=== PATIENT | male | born 1985 | race Caucasian/White ===

== ENCOUNTER → 2016-10-14 | Outpatient (CLI) | payer BC, OTHER ==
--- NOTE | 2016-10-14 09:50 | Diagnostic Imaging Report ---
Examination: DEXA scan. Indication: Screening for bone density. Technique: Bone mineral density estimated based on dual energy radiography over the lumbar spine and femoral necks, was performed. Findings: The lumbar spine T-score is 0.5. T score over the left femoral neck is 0.9 and on the right side is 0.7. IMPRESSION: Normal bone mineral density. Dictated by: Dictated on workstation # [id number]
== END ==
LOC: RAD 08:43
PROVIDERS: ATTEND Family Medicine
DX: Z13.820 Encounter for screening for osteoporosis (principal)
CPT/HCPCS: 77080

== ENCOUNTER → 2017-05-11 | Outpatient (CLI) | payer BC ==
--- NOTE | 2017-05-11 09:40 | Diagnostic Imaging Report ---
INDICATION: Left testicular elevation. FINDINGS: Right and left testes measure 5.3 x 2.4 x 3.6 cm and 3.9 x 1.7 x 2.7 cm, respectively. The smaller left testicle is also mildly dysmorphic, however blood flow is unremarkable to both testes and no discrete testicular mass is identified. There is no significant hydrocele or extratesticular lesion identified. There is no significant varicocele or evidence of bowel herniation into the scrotum. IMPRESSION: Mildly dysmorphic smaller left testicle without mass or evidence of torsion. Scrotum is otherwise unremarkable. Dictated by: Dictated on workstation # [id number]
== END ==
LOC: RAD 08:49
PROVIDERS: ATTEND Urology
DX: N50.89 Other specified disorders of the male genital organs (principal)
CPT/HCPCS: 76870

== ENCOUNTER → 2018-05-12 | Outpatient (CLI) | payer BC ==
--- NOTE | 2018-05-12 15:26 | Diagnostic Imaging Report ---
INDICATION: Undescended left testicle as a baby. FINDINGS: Right testicle measures 5.1 x 2.3 x 4.0 cm. Left testicle is smaller measuring 3.8 x 1.7 x 2.6 cm. Both testes are fairly homogeneous in echotexture. No testicular mass is seen. There is blood flow bilaterally. No hydrocele or varicocele is seen. Epididymides are unremarkable. IMPRESSION: Asymmetry in testicular size, left smaller. This is similar to the examination from one year earlier. No testicular mass or vascular compromise is identified. Dictated by: Dictated on workstation # [id number]
== END ==
LOC: RAD 14:22
PROVIDERS: ATTEND Family Medicine
DX: N50.0 Atrophy of testis (principal); Q53.10 Unspecified undescended testicle, unilateral; Z98.890 Other specified postprocedural states
CPT/HCPCS: 76870

== ENCOUNTER → 2019-05-15 | Outpatient (CLI) | payer BC ==
--- NOTE | 2019-05-15 10:40 | Diagnostic Imaging Report ---
CLINICAL INDICATION: Patient injured self two months ago working out. Patient has pain to lower left-sided back and down leg. EXAMS: 1: X-ray of the lumbar spine, three views. 2: X-ray of the sacroiliac joints, three views. COMPARISON: None. FINDINGS: Lumbar spine: There is no acute lumbar spine fracture. There is appearance of subtle grade 1 retrolisthesis of L5 on S1. There also appears to be mild loss of intervertebral disc height at the L5-S1 level. Remainder of lumbar spine is unremarkable. There is no other significant degenerative changes seen. Sacroiliac joints: The sacroiliac joints show no significant abnormality. There is no significant degenerative changes or erosions noted. Visualized course of both hips show small degenerative spurs involving the proximal femoral head/neck junction regions bilaterally. IMPRESSION: 1: There appears to be subtle grade 1 retrolisthesis of L5 on S1 and mild loss of intervertebral disc height at the L5-S1 level. If there is concern for disc herniation, MRI of the lumbar spine would better evaluate. Lateral flexion and extension views of lumbar spine would also help better evaluate the concern for L5-S1 retrolisthesis. 2: Sacroiliac joints show no significant abnormality. 3: Mild degenerative spurring involving both hips. Dictated by: Dictated on workstation # [id number]
== END ==
LOC: RAD 09:09
PROVIDERS: ATTEND Family Medicine
DX: M43.17 Spondylolisthesis, lumbosacral region (principal); M16.11 Unilateral primary osteoarthritis, right hip; M16.12 Unilateral primary osteoarthritis, left hip
CPT/HCPCS: 72100; 72202

== ENCOUNTER → 2019-05-24 | Outpatient (CLI) | payer BC ==
--- NOTE | 2019-05-24 09:37 | Diagnostic Imaging Report ---
CLINICAL INDICATION: Patient has low back pain x2 months now. EXAM: MRI of the lumbar spine performed without IV contrast. Sagittal T2, sagittal T1, sagittal T2 fat-sat, and axial T2. COMPARISON: X-ray of the lumbar spine dated 05/15/2019. FINDINGS: Lumbar spine has normal alignment with no fracture or dislocation. The lumbar vertebra have normal T1 and T2 signal. The visualized portions of the distal spinal cord, conus medullaris, and cauda equina have normal anatomic appearance. The conus medullaris tip is seen at the upper L1 vertebral body level. No paraspinal soft tissue abnormality is seen. L1-L2: Unremarkable. L2-L3: Unremarkable. L3-L4: Unremarkable. L4-L5: There are low T2 degenerative disc signal changes. There is no significant disc bulge. There is no significant central spinal canal or neural foramen narrowing. L5-S1: There is a mild diffuse disc bulge with superimposed small left paracentral disc protrusion/herniation and mild loss of intervertebral disc height. There are slight low T2 degenerative disc signal changes. There is concern for encroachment upon the non-exited left L1 nerve root. There is no significant central canal narrowing. There is moderate bilateral neuroforamen narrowing. IMPRESSION: 1: There is mild L5-S1 diffuse disc bulge with superimposed small left paracentral disc herniation. There is encroachment upon the non-exited left L1 nerve root and moderate bilateral neuroforamen narrowing. There is no significant central canal narrowing. Dictated by: Dictated on workstation # [id number]
== END ==
LOC: RAD 08:24
PROVIDERS: ATTEND Family Medicine
DX: M51.16 Intervertebral disc disorders with radiculopathy, lumbar region (principal); M48.061 Spinal stenosis, lumbar region without neurogenic claudication
CPT/HCPCS: 72148

== ENCOUNTER → 2019-12-27 | Outpatient (CLI) | payer BC | LOC: LABNPT 06:49 | PROVIDERS: ATTEND Family Medicine | DX: Z20.828 Contact with and (suspected) exposure to other viral communicable diseases (principal) ==

== ENCOUNTER → 2020-11-17 | Outpatient (CLI) | payer BC ==
--- NOTE | 2020-11-17 13:42 | Diagnostic Imaging Report ---
PROCEDURE: US Scrotum. TECHNIQUE: Multiple real-time grayscale images were obtained over the scrotum in various projections bilaterally. INDICATION: Undescended left testicle, repaired, follow-up. COMPARISON: 05/12/2018 FINDINGS: The right testicle measures 5.5 x 2.1 x 3.5 cm. Echogenicity is normal and vascularity is normal. No masses are present. The epididymis appears normal. There is no hydrocele. The left testicle measures 4.0 x 1.3 x 3.0 cm. Echogenicity appears normal and vascularity is normal. Contour is slightly asymmetric, but this appears stable compared to the prior studies. No masses are seen. There is no hydrocele. The epididymis is unremarkable. IMPRESSION: 1. Mildly smaller and asymmetric left testicle, appear stable since the prior exam, with no masses or other abnormality seen. Dictated by: Dictated on workstation # [id number]
== END ==
LOC: RAD 10:44
PROVIDERS: ATTEND Nurse Practitioner Family
DX: Q53.10 Unspecified undescended testicle, unilateral (principal); N50.812 Left testicular pain
CPT/HCPCS: 76870

== ENCOUNTER → 2022-10-06 | Outpatient (CLI) | payer BC ==
--- NOTE | 2022-10-06 13:28 | Diagnostic Imaging Report ---
PROCEDURE: US Scrotum. TECHNIQUE: Multiple real-time grayscale images were obtained over the scrotum in various projections bilaterally. INDICATION: History of undescended left testicle, repaired as an . Right testicle measures 5.3 x 2.6 x 3.3 cm and left testicle measures 4.3 x 2.2 x 2.3 cm. No discrete testicular mass is identified. There does appear to be some mild generalized heterogeneity to the left testicle. There is blood flow to both testes. Epididymides are unremarkable. No hydrocele or varicocele is detected. IMPRESSION: Slight asymmetry in testicular size and mild left testicular heterogeneity, perhaps owing to prior surgery. No discrete testicular mass or vascular compromise is detected. Dictated by: Dictated on workstation # [id number]
== END ==
LOC: RAD 12:30
PROVIDERS: ATTEND Physician Assistant
DX: N50.9 Disorder of male genital organs, unspecified (principal); Z87.438 Personal history of other diseases of male genital organs
CPT/HCPCS: 76870

== ENCOUNTER 2022-11-16 20:56 | Emergency (ER) | payer BC ==
--- NOTE | 2022-11-16 21:41 | ED Lower Extremity ---
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 PT STATES WAS WALING DOWN 2 STAIRS WHEN HE FELL INJURING HIS L KNEE. ABRASION NOTED TO L KNEE AT TRIAGE. DENIES HITTING HEAD AND OTHER INJURY. PT A&OX4 Source: patient, family () Exam Limitations: no limitations (MARK CASTRO) History of Present Illness Date Seen by Provider: Nov 16, 2022 Time Seen by Provider: 21:34 Initial Comments 37 yo M with no pertinent medical history presents to the ED following a fall ~30 minutes prior to arrival. Pt states that he was walking down his front steps when he missed the last step and fell forwards on to his left knee. states that knee had "dimples" around the bilateral superior aspect of the patella after the fall and states that the neighbor felt a pop when pt went to straighten knee. Pt notes that "dimples" have resolved but now has a bump superior to knee. Pt is ambulating without issue but does note increased pain and weakness with knee extension and hip flexion. Pt also notes pain and muscle spasms in thigh with knee extension. Pt has not taken anything for pain prior to arrival. Pt denies any clicking or popping of knee joint, head strike or LOC, decreased sensation, nausea, and vomiting. Onset: just prior to arrival Pain/Injury Location: left knee (abrasion on lateral aspect of knee), left t high (soft tissue bump superior to patella), left ankle (abrasion of lateral mallelous ) Method of Injury: fell (oen step ) (MARK CASTRO) Allergies and Home Medications Allergies Coded Allergies: No Known Drug Allergies (Unverified , 11/16/22) Patient Home Medication List Home Medication List Reviewed: Yes (MARK CASTRO) Review of Systems Constitutional: no symptoms reported EENTM: no symptoms reported Respiratory: no symptoms reported Cardiovascular: no symptoms reported Gastrointestinal: no symptoms reported Genitourinary: no symptoms reported Musculoskeletal: joint pain (Left knee with extension ), muscle cramps (left quadraceps with extension and hip flexion) Skin: other (abrasions of left knee and ankle) Psychiatric/Neurological: No Symptoms Reported (MARK CASTRO) All Other Systems Reviewed Negative Unless Noted: Yes (MARK CASTRO) Past Dhdctxb-Bovpri-Nvygpf Hx Patient Social History Tobacco Use?: Yes (socially) Tobacco type used: Cigarettes Substance use?: No Alcohol Use?: Yes (socially) Alcohol Frequency: Once in a while (MARK CASTRO) Past Medical History Surgery/Hospitalization HX: DENIES Surgeries: No Respiratory: No Cardiac: Yes Hypertension Neurological: No Genitourinary: No Gastrointestinal: No Musculoskeletal: No Endocrine: No HEENT: No Hearing Impairment: Denies Cancer: No Psychosocial: No Integumentary: No (MARK CASTRO) Family Medical History No Pertinent Family Hx (MARK CASTRO) Physical Exam Vital Signs Vital Signs - First Documented 11/16/22 21:02 Temp 36.8 Pulse 71 Resp 18 B/P (MAP) 101/64 (76) Pulse Ox 97 O2 Delivery Room Air (ZOFIA ARANGO MD) Vital Signs Capillary Refill : Less Than 3 Seconds (MARK CASTRO) Height, Weight, BMI Height: '" Weight: lbs. oz. kg; BMI Method: General Appearance: WD/WN, no apparent distress HEENT: PERRL/EOMI Neck: supple, normal inspection Legs: left leg abrasions (left knee and ankle), left leg deformity (bump just superior to L patella ), left leg limited range of motion (with L knee extension and L hip flexion), left leg pain (with L knee extension and L hip flexion) Neurologic/Tendon: normal sensation, other (unable to actively extend knee or lift L leg against gravity; unable to complete straight leg raise of L leg while seated ) Neurologic/Psychiatric: alert, normal mood/affect, oriented x 3 Skin: normal color, warm/dry, other (abrasions to L knee and L ankle) (MARK CASTRO) Progress/Results/Core Measures Results/Orders My Orders Orders - ZOFIA ARANGO MD Knee, Left, 3 Views (11/16/22 21:45) Dipht/Pertuss(Acell)/Tet Adult (Dipht/Pe (11/16/22 22:15) Rx-Hydrocodone/Apap 5-325 Mg (Rx-Vicodin (11/16/22 23:00) (ZOFIA ARANGO MD) Medications Given in ED Current Medications Medications Dose Ordered Sig/Susanna Route Start Time Stop Time Status Last Admin Dose Admin Acetaminophen/ Hydrocodone Bitart 1 ea Q6H PRN PO 11/16/22 23:00 11/16/22 23:03 DC 11/16/22 23:00 1 EA Diphtheria/ Tetanus/Acell Pertussis 0.5 ml ONCE ONCE IM 11/16/22 22:15 11/16/22 22:16 DC 11/16/22 22:36 0.5 ML (ZOFIA ARANGO MD) Vital Signs/I&O 11/16/22 11/16/22 21:02 23:02 Temp 36.8 Pulse 71 71 Resp 18 18 B/P (MAP) 101/64 (76) 101/64 Pulse Ox 97 97 O2 Delivery Room Air Room Air (ZOFIA ARANGO MD) Blood Pressure Mean: 76 Progress Progress Note : Progress Note patient seen and evaluated by me - I have independently obtained a h&P on this 37yo male with fall and left knee injury. 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 Defect in the quad on the left just superior to patella, inability to extend the leg. Distal NVI. Case discussed with Dr Boyce - Ortho network operations center technician. Recommends knee brace and may ambulate as tolerated with crutches or full weight bearing. Xrays of the left knee consistent with quad tendon rupture - suspect full rupture. no bony injury. Advised patient to call Ortho today for follow up appointment. Return precautions provided. No findings concerning for fracture or dislocation. All questions are sought and answered. (ZOFIA ARANGO MD) Diagnostic Imaging Diagonstic Imaging: Xray Comments left knee xray - soft tissue defect just proximal to patella - consistent with likely quad tendon rupture. no bony injury (ZOFIA ARANGO MD) Departure Communication (Admissions) Time/Spoke to Consulting Phy: 21:[address] Kerr (ortho) (ZOFIA ARANGO MD) Impression Primary Impression: Quadriceps tendon rupture Qualified Codes: S76.112A - Strain of left quadriceps muscle, fascia and tendon, initial encounter Additional Impression: Abrasion of skin Disposition: 01 HOME, SELF-CARE Condition: Stable Departure-Patient Inst. Decision time for Depature: 22:16 (ZOFIA ARANGO MD) Referrals: RAN FORD MD (PCP) Primary Care Physician ELMER ELLER (Family) Primary Care Physician Patient Instructions: Quadriceps and Patellar Tendon Injuries Add. Discharge Instructions: Ice packs just above the knee on the left 20 minutes at a time every 2-3 hours for swelling. Keep the knee immobilizer in place while you are up and moving around and walking. You can weight-bear as tolerated with or without the crutches. Please call Dr. Kerr's office in the morning for a follow-up appointment tomorrow afternoon. Keep the skin abrasions clean dry and covered for the next couple of days. You can apply a little triple antibiotic ointment twice a day after washing with a mild soap and water. Ibuprofen 3 tablets which is 600 mg every 6 hours with food as needed for pain. I have also given you 4 hydrocodone tablets that you can take if the pain is more intense. Please take 1 every 4-6 hours as needed Return to the emergency department for any new, concerning or emergent complaints. Work/School Note: Work Release Form Date Seen in the Emergency Department: Nov 16, 2022 Return to Work: Nov 18, 2022 Verification and Attestation of Medical Student E/M Service A medical student performed and documented this service in my presence. I reviewed and verified all information documented by the medical student and made modifications to such information, when appropriate. I personally performed the physical exam and medical decision making. Zofia Arango, Nov 16, 2022,22:18 (ZOFIA ARANGO MD) Copy Copies To 1: MARY LOU KERR MD Copies To 2: RAN FORD MD, TAYLOR Nov 16, 2022 21:40 ZOFIA ARANGO MD Nov 16, 2022 22:18
[2022-11-16] MEDS ORDERED: Tetanus/Diphtheria/Pertussis (Acell) ADULT Vaccine 0.5 ML IM ONE (22:15)
[2022-11-16 23:02] VITALS: BP 101/64
--- NOTE | 2022-11-17 06:59 | Diagnostic Imaging Report ---
INDICATION: Fall with left knee pain AP, oblique, and lateral views of the left knee are obtained. The patella appears to be subluxed inferiorly, there is some superior patellar spurring. There are calcifications in the suprapatellar recess which may represent chronic calcifications or avulsed fragments. The distal femur and proximal tibia and fibula are intact. IMPRESSION: There is some inferior subluxation of the patella as above, tendinous injury cannot be excluded. Consider MRI as clinically warranted. There are calcifications in the suprapatellar recess which may represent avulsed fragments or chronic calcifications. Dictated by: Dictated on workstation # [id number]
== END 2022-11-16 23:02 | disposition home or self-care (01) ==
LOC: EDUNIT# 20:56 → ER 20:58
DX: S76.112A Strain of left quadriceps muscle, fascia and tendon, initial encounter (principal); S80.212A Abrasion, left knee, initial encounter; S90.512A Abrasion, left ankle, initial encounter; F17.210 Nicotine dependence, cigarettes, uncomplicated; Z23 Encounter for immunization; W10.9XXA Fall (on) (from) unspecified stairs and steps, initial encounter; Y93.01 Activity, walking, marching and hiking
CPT/HCPCS: 73562; 90715